=== PATIENT | female | born 2000 | race Caucasian/White ===

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

== ENCOUNTER 2022-03-04 20:56 | Emergency (ER) | payer MEDICAID ==
[~2022-03-04] VITALS: Ht 162.6 cm; Wt 78.2 kg
[2022-03-04 22:24] VITALS: BP 140/91; PULSE 82; TEMP 98.4
== END 2022-03-04 22:24 | disposition home or self-care (01) ==
LOC: COL.ER 20:56
DX: L25.9 Unspecified contact dermatitis, unspecified cause (principal); Z28.311 Partially vaccinated for COVID-19

== ENCOUNTER 2022-05-05 21:06 | Emergency (ER) | payer MEDICAID ==
[~2022-05-05] VITALS: Ht 162.6 cm; Wt 80.6 kg
[2022-05-05 23:22] VITALS: BP 139/89; PULSE 89; TEMP 98.1
== END 2022-05-05 23:22 ==
LOC: COL.ER 21:06
DX: R45.851 Suicidal ideations (principal)

== ENCOUNTER 2022-12-06 21:46 | Emergency (ER) | payer MEDICAID ==
[~2022-12-06] VITALS: Ht 152.4 cm; Wt 84.1 kg
[2022-12-06] MEDS ORDERED: PROZAC40 MG PO (21:55)
[2022-12-06] MEDS ORDERED: WELLBUTRIN XL150 MG PO (21:55)
[2022-12-06 21:56] VITALS: TEMP 98.6
[2022-12-06] MEDS ORDERED: MINIPRESS 1M1 MG/CAP PO (21:56)
[2022-12-06] MEDS ORDERED: ATARAX 25MG25 MG/TAB PO (21:56)
[2022-12-06 22:37] LABS: COLLECTION METHOD CLEAN CATCH
[2022-12-06 22:39] LABS: BASO # 0.1 K/mm3 (0.0-0.2); BASO % 0.7 % (0.0-2.0); EOS # 0.2 K/mm3 (0.0-0.7); EOS % 1.7 % (0.0-4.0); GRAN % 58.6 % (42.2-75.2); HEMATOCRIT 37.6 % (35.0-45.0); HEMOGLOBIN 12.8 g/dl (12.0-15.0); LYMPH # 3.3 K/mm3 (1.2-3.4); MEAN CELL VOLUME 83 fl (80.0-95.0); MEAN CORPUSCULAR HEMOGLOBIN 28 pg (26-32); MEAN CORPUSCULAR HGB CONC 34 g/dl (33.0-37.0); MEAN PLATELET VOLUME 8.6 fl (7.4-10.4); MONO # 0.7 K/mm3 (0.1-0.6); MONO % 6.4 % (1.7-9.3); PLATELET COUNT 408 K/mm3 (130-400); RED BLOOD COUNT 4.53 M/mm3 (4.10-5.30); REDCELL DISTRIBUTION WIDTH-CV 11.9 % (11.5-14.5)
[2022-12-06 22:42] LABS: MUCOUS Present (NOT PRESENT); URINE BACTERIA Rare /hpf (NONE SEEN)
[2022-12-06 22:46] LABS: PH 5.5 (5.0-8.5); URINE APPEARANCE Clear (CLEAR/HAZY); URINE BLOOD Negative (NEGATIVE); URINE COLOR Yellow (YELLOW); URINE GLUCOSE Negative (NEGATIVE); URINE KETONE Negative (NEGATIVE); URINE NITRATE Negative (NEGATIVE); URINE PROTEIN(semi-quant) Negative (NEGATIVE); URINE UROBILINOGEN 0.2 E.U/dL (0.2-1.0)
[2022-12-06 23:03] LABS: ALANINE AMINOTRANSFERASE 13 U/L (0-55); ALBUMIN 4.1 gm/dL (3.5-5.0); ALKALINE PHOSPHATASE 117 U/L (40-150); ANION GAP 11 mmol/L (7-16); AST,SGOT 16 U/L (5-34); BILIRUBIN,TOTAL 0.3 mg/dL (0.2-1.2); BLOOD UREA NITROGEN 9 mg/dL (7-19); CALCIUM 9.5 mg/dL (8.4-10.2); CARBON DIOXIDE 22 mmol/L (22-29); CHLORIDE 106 mmol/L (98-107); CREATININE, serum 0.67 mg/dL (0.57-1.11); GLUCOSE 77 mg/dL (70-99); POTASSIUM 4.1 mmol/L (3.5-4.5); SODIUM 139 mmol/L (136-145); TOTAL PROTEIN 7.6 gm/dL (6.2-8.1)
[2022-12-06 23:05] LABS: ACETAMINOPHEN < 1.0 ug/mL (10-30); ALCOHOL(ethanol),MEDICAL < 10 mg/dL (0-10); SALICYLATE < 5.0 mg/dL (15.0-30.0)
[2022-12-06 23:08] LABS: TRICYCLIC ANTIDEPRESS URINE NEGATIVE
[2022-12-07 01:05] VITALS: BP 119/70; PULSE 93
== END 2022-12-07 01:05 | disposition home or self-care (01) ==
LOC: COL.ER 21:46
PROVIDERS: Emergency Medicine
DX: S61.511A Laceration without foreign body of right wrist, initial encounter (principal); S61.512A Laceration without foreign body of left wrist, initial encounter; S71.112A Laceration without foreign body, left thigh, initial encounter; X78.9XXA Intentional self-harm by unspecified sharp object, initial encounter

== ENCOUNTER 2023-06-24 18:40 | Emergency (ER) | payer MEDICAID ==
[~2023-06-24] VITALS: Ht 162.6 cm; Wt 95.5 kg
[~2023-06-24 18:40] MED LIST changes: +ATARAX 25MG25 MG/TAB PO; +MINIPRESS 1M1 MG/CAP PO; +PROZAC40 MG PO; +WELLBUTRIN XL150 MG PO
[2023-06-24 20:32] LABS: COLLECTION METHOD CLEAN CATCH
[2023-06-24] MEDS ORDERED: MINIPRESS2 MG ×2 (20:46→20:51)
[2023-06-24 20:51] LABS: URINE APPEARANCE Clear (CLEAR/HAZY); URINE BLOOD TRACE-LYSED (NEGATIVE); URINE COLOR Yellow (YELLOW); URINE GLUCOSE Negative (NEGATIVE); URINE KETONE Negative (NEGATIVE); URINE NITRATE Negative (NEGATIVE); URINE PROTEIN(semi-quant) Negative (NEGATIVE); URINE RBC 0-2 /hpf (0-2); URINE UROBILINOGEN 0.2 E.U/dL (0.2-1.0)
[2023-06-24] MEDS ORDERED: AUVELITY ER 451 EACH PO (20:51)
[2023-06-24 20:52] LABS: MUCOUS Present (NOT PRESENT); URINE BACTERIA Moderate /hpf (NONE SEEN)
[2023-06-24 20:55] LABS: BASO % 0.5 % (0.0-2.0); EOS # 0.1 K/mm3 (0.0-0.7); EOS % 1.4 % (0.0-4.0); GRAN # 5.1 K/mm3 (1.4-6.5); GRAN % 64.3 % (42.2-75.2); HEMATOCRIT 40.3 % (35.0-45.0); HEMOGLOBIN 13.8 g/dl (12.0-15.0); LYMPH # 2.2 K/mm3 (1.2-3.4); LYMPH % 27.9 % (20.0-51.0); MEAN CELL VOLUME 82 fl (80.0-95.0); MEAN CORPUSCULAR HEMOGLOBIN 28 pg (26-32); MEAN CORPUSCULAR HGB CONC 34 g/dl (33.0-37.0); MEAN PLATELET VOLUME 8.9 fl (7.4-10.4); MONO # 0.4 K/mm3 (0.1-0.6); MONO % 5.5 % (1.7-9.3); PLATELET COUNT 427 K/mm3 (130-400); REDCELL DISTRIBUTION WIDTH-CV 12.2 % (11.5-14.5)
[2023-06-24 20:55] LABS: TRICYCLIC ANTIDEPRESS URINE NEGATIVE
[2023-06-24 21:07] LABS: ALANINE AMINOTRANSFERASE 19 U/L (0-55); ALBUMIN 4.1 gm/dL (3.5-5.0); ALKALINE PHOSPHATASE 121 U/L (40-150); ANION GAP 11 mmol/L (7-16); AST,SGOT 17 U/L (5-34); BILIRUBIN,TOTAL 0.5 mg/dL (0.2-1.2); BLOOD UREA NITROGEN 9 mg/dL (7-19); CALCIUM 9.6 mg/dL (8.4-10.2); CARBON DIOXIDE 22 mmol/L (22-29); CHLORIDE 104 mmol/L (98-107); CREATININE, serum 0.77 mg/dL (0.57-1.11); GLUCOSE 111 mg/dL (70-99); POTASSIUM 3.6 mmol/L (3.5-4.5); SODIUM 137 mmol/L (136-145); TOTAL PROTEIN 7.8 gm/dL (6.2-8.1)
[2023-06-24 21:09] LABS: ACETAMINOPHEN < 1.0 ug/mL (10-30); ALCOHOL(ethanol),MEDICAL < 10 mg/dL (0-10); SALICYLATE < 5.0 mg/dL (15.0-30.0)
[2023-06-25 06:11] VITALS: BP 103/57; TEMP 98.7
[2023-06-25 08:40] VITALS: PULSE 73
== END 2023-06-25 08:40 ==
LOC: COL.ER 18:40
PROVIDERS: Nurse Practitioner Primary Care
DX: R45.851 Suicidal ideations (principal)

== ENCOUNTER 2024-06-06 19:01 | Emergency (ER) | payer MEDICAID ==
[~2024-06-06] VITALS: Ht 165.1 cm; Wt 90.9 kg
[~2024-06-06 19:01] MED LIST changes: +AUVELITY ER 451 EACH PO; +MINIPRESS2 MG
[2024-06-06 19:07] VITALS: TEMP 98.3
[2024-06-06] MEDS ORDERED: LORazepam 0.5 MG TAB PO ONE (19:30)
[2024-06-06] MEDS ORDERED: ATIVAN 0.50.5 MG/TAB PO (20:35)
[2024-06-06 20:51] VITALS: BP 121/75; PULSE 80
== END 2024-06-06 21:01 | disposition home or self-care (01) ==
LOC: COL.ER 19:01
DX: F41.9 Anxiety disorder, unspecified (principal)